=== PATIENT | male | born 1970 | race Two or more races ===

== ENCOUNTER 2020-10-30 12:44 | Emergency (ER) | payer SELFPAY ==
[~2020-10-30] VITALS: Ht 165.1 cm; Wt 81.0 kg
[2020-10-30 13:12] LABS: BILIRUBIN,URINE SMALL (NEG); CLARITY,URINE CLEAR; COLOR,URINE YELLOW; NITRITE,URINE NEGATIVE (NEG); PH,URINE 5.5 (<5.0-8.0); PROTEIN,URINE 30 mg/dL (NEG-TRACE)
[2020-10-30 13:24] LABS: BACTERIA,URINE 0 /HPF (0-FEW)
[2020-10-30] MEDS ORDERED: KETOROLAC 15 MG/ML VIAL. IVP ONE (13:45)
[2020-10-30] MEDS ORDERED: IPRATRPIUM/ALBUTEROL 0.5/2.5MG 3 ML NEBU. NEB ONE (13:45)
[2020-10-30] MEDS ORDERED: fentaNYL PF VIAL 100 MCG/2 ML VIAL IVP ONE (14:00)
[2020-10-30 14:02] LABS: BASO # 0.1 x10^3/uL (0.0-0.2); BASO % 0 % (0-3); EOS % 0 % (0-3); HEMOGLOBIN 15.8 g/dL (13.0-17.5); LYMPH # 0.7 x10^3/uL (1.0-4.8); LYMPH % 4 % (24-48); MEAN CORPUSCULAR HEMOGLOBIN 29 pg (25-35); MEAN CORPUSCULAR HGB CONC 35 g/dL (31-37); MEAN CORPUSCULAR VOLUME 83 fL (79-100); MONO # 0.7 x10^3/uL (0.0-1.1); MONO % 5 % (0-9); NEUT # 15.1 x10^3/uL (1.8-7.7); NEUT % 91 % (31-73); PLATELET COUNT 208 x10^3/uL (140-400); RED BLOOD COUNT 5.44 x10^6/uL (4.30-5.70); RED CELL DISTRIBUTION WIDTH 12.9 % (11.5-14.5); WHITE BLOOD COUNT 16.5 x10^3/uL (4.0-11.0)
[2020-10-30 14:07] VITALS: BP 168/89
[2020-10-30 14:10] LABS: CALCIUM 9.3 mg/dL (8.5-10.1); CREATININE 1.1 mg/dL (0.7-1.3); GFR 71.1; POTASSIUM 3.5 mmol/L (3.5-5.1)
[2020-10-30 14:16] LABS: ALBUMIN 4.2 g/dL (3.4-5.0); ALBUMIN/GLOBULIN RATIO 1.1 (1.0-1.7); TOTAL BILIRUBIN 0.6 mg/dL (0.2-1.0)
--- NOTE | 2020-10-30 14:23 | RAD ---
INDICATION: Reason: right flank and RLQ pain, HEMATURIA / Spl. Instructions: / History: . COMPARISON: None. TECHNIQUE: Axial CT images obtained through the abdomen and pelvis without contrast. One or more of the following individualized dose reduction techniques were utilized for this examinat ion: 1. Automated exposure control; 2. Adjustment of the mA and/or kV according to patient size; 3 . Use of iterative reconstruction technique. FINDINGS: Linear opacities at the lung bases which can be seen with scarring or atelectasis. Coronary artery calcific atherosclerosis. Fat-containing inguinal hernias. Liver is low density. Can be seen with fatty infiltration. Gallbladder is partially contracted. No peripancreatic fluid collection. Spleen unremarkable. Urinary bladder is largely decompressed. Mild right-sided hydronephrosis and hydroureter with perinep hric edema as well as a 2 mm stone at right ureterovesicular junction region or just distal to it wit hin the bladder. Colonic diverticulosis. No periappendiceal inflammatory changes. Degenerative changes the spine. IMPRESSION: * Right-sided hydronephrosis and hydroureter with stone either at the right ureterovesicular junctio n or just distal to it within the urinary bladder. Electronically signed by: Alejandro Vasquez MD (10/30/2020 2:20 PM) [id number]
[2020-10-30] MEDS ORDERED: HYDR-2761 PO (14:44)
[2020-10-30] MEDS ORDERED: IBUP-1060 PO (14:44)
[2020-10-30] MEDS ORDERED: CIPR250T30 PO (14:44)
--- NOTE | 2020-10-30 14:45 | ED.ADGEN ---
Past Medical History Past Surgical History: No Surgical History Smoking Status: Never Smoker Alcohol Use: None General Adult EDM: Chief Complaint: FLANK PAIN HPI: HPI: 50-year male coming in for 4 days of right flank pain that is now moved down to right lower quadrant. Has noticed some urinary frequency and dysuria. Denies any blood in his urine. Denies any fever, vomiting or diarrhea. Denies any history of kidney stones. Review of Systems: Review of Systems: All other systems within normal limits except for as noted in the HPI Current Medications: Current Medications Medications (Trade) Dose Ordered Sig/Aliza Start Time Stop Time Status Last Admin Dose Admin Albuterol/ Ipratropium (Duoneb) 3 ml 1X ONCE 10/30/20 13:45 10/30/20 13:51 DC Fentanyl Citrate (Fentanyl 2ml Vial) 75 mcg 1X ONCE 10/30/20 14:00 10/30/20 14:01 DC 10/30/20 13:59 75 MCG Ketorolac Tromethamine (Toradol 15mg Vial) 15 mg 1X ONCE 10/30/20 13:45 10/30/20 13:46 DC 10/30/20 13:56 15 MG Allergies: Allergies: Allergies Coded Allergies Type Severity Reaction Last Updated Verified No Known Drug Allergies 10/30/20 No Physical Exam: PE: Constitutional: Well developed, well nourished, no acute distress, non-toxic appearance. [] HENT: Normocephalic, atraumatic, bilateral external ears normal, nose normal. [] Eyes: PERRLA, conjunctiva normal, no discharge. [] Neck: No rigidity, supple, no stridor. [] Cardiovascular: Regular rate and rhythm, brisk cap refill [] Lungs & Thorax: Non labored symmetric respirations, no tachypnea or respiratory distress [] Abdomen: Soft, nondistended. There is an right lower abdomen without rebound or guarding Skin: Warm, dry, no erythema, no rash. [] Back: Unremarkable, right CVA tenderness Extremities: No deformities, range of motion grossly intact, no lower extremity edema [] Neurologic: Alert and oriented X 3, no focal deficits noted. [] Psychologic: Affect normal, judgement normal, mood normal. [] Current Patient Data: Labs: Laboratory Tests Test 10/30/20 12:30 10/30/20 13:56 Urine Collection Type Unknown Urine Color Yellow Urine Clarity Clear Urine pH 5.5 (<5.0-8.0) Urine Specific Ola 1.020 (1.000-1.030) Urine Protein 30 mg/dL (NEG-TRACE) Urine Glucose (UA) Negative mg/dL (NEG) Urine Ketones (Stick) >=80 mg/dL (NEG) Urine Blood Large (NEG) Urine Nitrite Negative (NEG) Urine Bilirubin Small (NEG) Urine Urobilinogen Dipstick 1.0 mg/dL (0.2 mg/dL) Urine Leukocyte Esterase Negative (NEG) Urine RBC 11-20 /HPF (0-2) Urine WBC 1-4 /HPF (0-4) Urine Bacteria 0 /HPF (0-FEW) Urine Mucus Marked /LPF White Blood Count 16.5 x10^3/uL (4.0-11.0) H Red Blood Count 5.44 x10^6/uL (4.30-5.70) Hemoglobin 15.8 g/dL (13.0-17.5) Hematocrit 45.0 % (39.0-53.0) Mean Corpuscular Volume 83 fL (79-100) Mean Corpuscular Hemoglobin 29 pg (25-35) Mean Corpuscular Hemoglobin Concent 35 g/dL (31-37) Red Cell Distribution Width 12.9 % (11.5-14.5) Platelet Count 208 x10^3/uL (140-400) Neutrophils (%) (Auto) 91 % (31-73) H Lymphocytes (%) (Auto) 4 % (24-48) L Monocytes (%) (Auto) 5 % (0-9) Eosinophils (%) (Auto) 0 % (0-3) Basophils (%) (Auto) 0 % (0-3) Neutrophils # (Auto) 15.1 x10^3/uL (1.8-7.7) H Lymphocytes # (Auto) 0.7 x10^3/uL (1.0-4.8) L Monocytes # (Auto) 0.7 x10^3/uL (0.0-1.1) Eosinophils # (Auto) 0.0 x10^3/uL (0.0-0.7) Basophils # (Auto) 0.1 x10^3/uL (0.0-0.2) Segmented Neutrophils % 89 % (35-66) H Band Neutrophils % 6 % (0-9) Lymphocytes % 3 % (24-48) L Monocytes % 2 % (0-10) Platelet Estimate Adequate (ADEQUATE) Sodium Level 135 mmol/L (136-145) L Potassium Level 3.5 mmol/L (3.5-5.1) Chloride Level 100 mmol/L (98-107) Carbon Dioxide Level 24 mmol/L (21-32) Anion Gap 11 (6-14) Blood Urea Nitrogen 15 mg/dL (8-26) Creatinine 1.1 mg/dL (0.7-1.3) Estimated GFR (Cockcroft-Gault) 71.1 BUN/Creatinine Ratio 14 (6-20) Glucose Level 120 mg/dL (70-99) H Calcium Level 9.3 mg/dL (8.5-10.1) Total Bilirubin 0.6 mg/dL (0.2-1.0) Aspartate Amino Transferase (AST) 15 U/L (15-37) Alanine Aminotransferase (ALT) 47 U/L (16-63) Alkaline Phosphatase 122 U/L (46-116) H Total Protein 8.0 g/dL (6.4-8.2) Albumin 4.2 g/dL (3.4-5.0) Albumin/Globulin Ratio 1.1 (1.0-1.7) Lipase 67 U/L (73-393) L Laboratory Tests 10/30/20 13:56 Laboratory Tests 10/30/20 13:56 Vital Signs: Vital Signs Date Time Temp Pulse Resp B/P (MAP) Pulse Ox O2 Delivery O2 Flow Rate FiO2 10/30/20 14:07 78 16 168/89 (115) 97 Room Air 10/30/20 12:52 98.5 98.5 EKG: EKG: [] Heart Score: C/O Chest Pain: No Risk Factors: Risk Factors: DM, Current or recent (<one month) smoker, HTN, HLP, family history of CAD, obesity. Risk Scores: Score 0 - 3: 2.5% MACE over next 6 weeks - Discharge Home Score 4 - 6: 20.3% MACE over next 6 weeks - Admit for Clinical Observation Score 7 - 10: 72.7% MACE over next 6 weeks - Early Invasive Strategies Radiology/Procedures: Radiology/Procedures: [facility] [address] [place] [address] IMAGING REPORT Signed PATIENT: STANLEY SALAZAR ACCOUNT: [id number] : 1970 LOCATION: ER AGE: 50 SEX: M EXAM STATUS: PRE ER ORD. PHYSICIAN: ANGELITA COHEN MD REASON: right flank and RLQ pain, HEMATURIA PROCEDURE: CT ABDOMEN PELVIS WO CONTRAST INDICATION: Reason: right flank and RLQ pain, HEMATURIA / Spl. Instructions: / History: . COMPARISON: None. TECHNIQUE: Axial CT images obtained through the abdomen and pelvis without contrast. One or more of the following individualized dose reduction techniques were utilized for this examination: 1. Automated exposure control; 2. Adjustment of the mA and/or kV according to patient size; 3. Use of iterative reconstruction technique. FINDINGS: Linear opacities at the lung bases which can be seen with scarring or atelectasis. Coronary artery calcific atherosclerosis. Fat-containing inguinal hernias. Liver is low density. Can be seen with fatty infiltration. Gallbladder is partially contracted. No peripancreatic fluid collection. Spleen unremarkable. Urinary bladder is largely decompressed. Mild right-sided hydronephrosis and hydroureter with perinephric edema as well as a 2 mm stone at right ureterovesicular junction region or just distal to it within the bladder. Colonic diverticulosis. No periappendiceal inflammatory changes. Degenerative changes the spine. IMPRESSION: * Right-sided hydronephrosis and hydroureter with stone either at the right ureterovesicular junction or just distal to it within the urinary bladder. Electronically signed by: Britany Vasquez MD (10/30/2020 2:20 PM) [id number] DICTATED and SIGNED BY: BRITANY VASQUEZ MD DATE: 10/30/20 [id number] [] Course & Med Decision Making: Course & Med Decision Making Pertinent Labs and Imaging studies reviewed. (See chart for details) Due to patient's white count stranding around the kidney will also treat empirically with antibiotics for possible infection [] Dragon Disclaimer: Dragon Disclaimer: This electronic medical record was generated, in whole or in part, using a voice recognition dictation system. Departure Departure Impression: Primary Impression: Kidney stone on right side Disposition: HOME / SELF CARE / HOMELESS Condition: STABLE Patient Instructions: Kidney Stones Additional Instructions: Follow-up with [place] [facility] at [phone] Scripts Hydrocodone/Acetaminophen (Hydrocodone-Acetamin 5-325 mg) 1 Each Tablet 1 EACH PO PRN Q6-8HRS PRN for PAIN for 3 Days, #10 TAB Prov: ANGELITA COHEN MD 10/30/20 Ciprofloxacin Hcl (CIPRO) 250 Mg Tablet 1 TAB PO BID for infection for 5 Days, #10 TAB Prov: ANGELITA COHEN MD 10/30/20 Ibuprofen (IBUPROFEN) 800 Mg Tablet 800 MG PO PRN Q8HRS PRN for PAIN for 5 Days, #20 TAB Prov: ANGLEITA COHEN MD 10/30/20 Hydrocodone Bit/Acetaminophen (HYDROCODONE-APAP 5-325 ) 1 Tab Tablet 1 TAB PO PRN Q6HRS PRN for PAIN for 3 Days, #12 TAB 0 Refills Prov: ANGELITA COHEN MD 10/30/20 ANGELITA COHEN MD Oct 30, 2020 14:44
[2020-10-30 14:51] LABS: % BANDS 6 % (0-9); % LYMPHS 3 % (24-48); % MONOS 2 % (0-10); % SEGS 89 % (35-66); PLT ESTIMATE ADEQUATE (ADEQUATE)
[2020-10-30] MEDS ORDERED: HYDR-2759 PO (17:20)
== END 2020-10-30 14:55 | disposition home or self-care (01) ==
LOC: ER 12:44
DX: N13.2 Hydronephrosis with renal and ureteral calculous obstruction (principal)
CPT/HCPCS: 36415; 74176; 80053; 81001; 83690; 85007; 85025; 96374; 96375; 99284; J1885; J3010